=== PATIENT | female | born 1955 | race Caucasian/White ===

== ENCOUNTER → 2017-06-19 | Outpatient (CLI) | payer MEDICARE ==
--- NOTE | 2017-06-20 07:16 | US ---
EXAM DESCRIPTION: Thyroid CLINICAL HISTORY: 61 years Female, ENDOCRINE AND METABOLIC DISEASE COMPARISON: None. FINDINGS: The right thyroid lobe measures 4.4 cm in length. It contains a few small round hypoechoic nodules measuring up to 1.4 cm diameter, all without internal calcification. These may represent complex cystic or solid nodules. The thyroid isthmus is not thickened. The left thyroid lobe measures 5.6 cm in length. There is a solid isoechoic 7 mm nodule inferior pole left thyroid lobe without internal calcification. No color Doppler images of the thyroid were obtained. IMPRESSION: Bilateral subcentimeter thyroid nodules as detailed above. Follow-up ultrasound in 9-12 months is recommended to document stability. Otherwise unremarkable exam. Electronically signed by: J Luis Benjamin MD 06/20/2017 7:14 AM CDT Workstation: [id number]
--- NOTE | 2017-06-20 11:06 | MAM ---
EXAM DESCRIPTION: 3D Screening BILATERAL CLINICAL HISTORY: 61 yearsFemaleSCREENING. No complaints. No family history breast cancer. Postmenopausal. Currently on HRT. COMPARISON: 2-D digital screening bilateral examination 06/29/2016 and 04/22/2014.. Report from prior examination also reviewed. TECHNIQUE: Bilateral CC and MLO projection full-field images, 3-D tomosynthesis digital mammographic technique. Also bilateral synthesized CC/ MLO full-field images. CAD not utilized. FINDINGS: The breast parenchymal density pattern is: Scattered areas of fibroglandular density. No skin thickening or nipple retraction bilateral solitary microcalcifications. Focal asymmetry in the upper outer quadrant of the posterior third of the right breast is stable since 2014 examination. No focal, stellate mass or density, focal asymmetry , and no suspicious microcalcifications bilaterally. Stable mammograms compared to prior studies, taking into account differences in mammographic technique. IMPRESSION: BI-RADS CATEGORY: 2 - BENIGN FINDINGS. FOLLOW UP: Routine digital bilateral screening, one year interval from date Written communication explaining the findings and follow-up, will be mailed to the patient and referring health care provider. According to the [employer], yearly mammograms are recommended starting at age 40 and continuing as long as a woman is in good health. Any breast change noted on a breast self-exam should be reported promptly to the patient's healthcare provider. Breast MRI is recommended for women with an approximately 20-25% or greater lifetime risk of breast cancer, including women with a strong family history of breast or ovarian cancer and women who have been treated for Hodgkin's disease. A negative mammographic report should not delay tissue diagnosis in patients with significant clinical history or physical findings. Extremely dense breast tissue limits the sensitivity of digital mammography. Electronically signed by: Vivek Todd MD 06/20/2017 11:05 AM CDT Workstation: [id number]
== END | disposition home or self-care (01) ==
LOC: US 09:52
PROVIDERS: ATTEND Obstetrics & Gynecology
DX: Z12.31 Encounter for screening mammogram for malignant neoplasm of breast (principal); Z86.39 Personal history of other endocrine, nutritional and metabolic disease
CPT/HCPCS: 76536; 77063; G0202

== ENCOUNTER → 2017-08-16 | Outpatient (CLI) | payer MEDICARE | END | disposition home or self-care (01) | LOC: GMAB 12:38 | PROVIDERS: ATTEND Family Medicine | DX: I10 Essential (primary) hypertension (principal) ==

== ENCOUNTER → 2018-11-14 | Outpatient (CLI) | payer MEDICARE ==
--- NOTE | 2018-11-15 13:28 | MAM ---
EXAM DESCRIPTION: 3D Screening BILATERAL : Digital Mammography. CLINICAL HISTORY: 62 years Female SCREENING . No complaints. No personal or family history of breast cancer. No childbirth. Postmenopausal. Taking HRT 5 or more years ago.. Lifetime risk of developing breast cancer (Tyrer-Cuzick model)(%): 8.1. COMPARISON: prior. No prior reports available. TECHNIQUE: Bilateral CC and MLO projection full-field images, digital tomosynthesis mammographic technique. Bilateral digital 2-D full-field MLO images. CAD not available for tomosynthesis or 2-D images. FINDINGS: The breast parenchymal density pattern is: Scattered areas of fibroglandular density. No skin thickening or nipple retraction. Bilateral solitary microcalcifications. Smaller calcifications associated with fibroglandular tissues in the upper outer quadrant of the posterior right breast. No new focal, stellate mass or density, focal asymmetry , and no suspicious microcalcifications bilaterally. Stable mammograms compared to prior study. IMPRESSION: Benign exam. BIRAD CATEGORY: 2 BENIGN FINDINGS. RECOMMENDATIONS: FOLLOW UP: Routine digital bilateral mammographic screening, one year interval from October 2018. Written communication explaining the IMPRESSION and follow-up, will be mailed to the patient and referring health care provider. According to the [employer], yearly mammograms are recommended starting at age 40 and continuing as long as a woman is in good health. Any breast change noted on a breast self-exam should be reported promptly to the patient's healthcare provider. Breast MRI is recommended for women with an approximately 20-25% or greater lifetime risk of breast cancer, including women with a strong family history of breast or ovarian cancer and women who have been treated for Hodgkin's disease. A negative mammographic report should not delay tissue diagnosis in patients with significant clinical history or physical findings. Extremely dense breast tissue limits the sensitivity of digital mammography. Electronically signed by: Vivek Todd MD 11/15/2018 1:27 PM BOILERMAKER'S ASSISTANT
== END ==
LOC: MAMMO 10:38
PROVIDERS: ATTEND Obstetrics & Gynecology
DX: Z12.31 Encounter for screening mammogram for malignant neoplasm of breast (principal)

== ENCOUNTER → 2018-12-20 | Outpatient (CLI) | payer MEDICARE, OTHER ==
--- NOTE | 2018-12-21 07:48 | MRI ---
MRI right shoulder without contrast INDICATION: Shoulder pain limited range of motion date of onset not specified TECHNIQUE: MR imaging right shoulder without contrast standard protocol FINDINGS: Mild hypertrophic AC joint osteoarthrosis. Full-thickness retracted tears of the supraspinatus and infraspinatus retracted to the medial humeral head level. Background mild glenohumeral osteoarthrosis. Prominent joint fluid and diffuse bursitis with synovitis. Reactive marrow edema greater tuberosity. Up to grade 4 atrophy infraspinatus muscle belly. Grade 2 changes supraspinatus. Grade 1 changes teres minor and subscapularis. Prominent tendinopathy and partial tear subscapularis. Diffuse interstitial partial tear long head bicep with background tendinopathy. Diffuse labral degeneration. Cystic change lesser tuberosity related to the insertional subscapularis tear or bicep instability IMPRESSION: Full-thickness retracted tear supraspinatus and infraspinatus and partial tear with tendinosis subscapularis Diffuse partial tear long head bicep high-grade with cystic changes lesser tuberosity Prominent joint fluid and bursitis Mild AC joint osteoarthrosis Mild glenohumeral osteoarthrosis. Electronically signed by: Rohit Loredo MD 12/21/2018 7:45 AM ELECTRICIAN SOUND
== END ==
LOC: MRI 13:52
PROVIDERS: ATTEND Obstetrics & Gynecology
DX: M75.101 Unspecified rotator cuff tear or rupture of right shoulder, not specified as traumatic (principal); S46.119A Strain of muscle, fascia and tendon of long head of biceps, unspecified arm, initial encounter; M19.011 Primary osteoarthritis, right shoulder; M75.51 Bursitis of right shoulder; M19.90 Unspecified osteoarthritis, unspecified site

== ENCOUNTER → 2019-01-18 | Outpatient (CLI) | payer OTHER ==
--- NOTE | 2019-01-19 11:25 | CT ---
EXAM DESCRIPTION: Upper Extremity CLINICAL HISTORY: 63 years Female, LOCALIZED, PRIMARY OSTEOARTHRITIS, RIGHT SHOULDER. M19.011 COMPARISON: MRI of the right shoulder dated 12/20/2018. FINDINGS: The visualized bones appear well mineralized. No acute fracture or dislocation. Mild degenerative changes are identified in the acromioclavicular and glenohumeral joints. There is superior migration of the humeral head in relation to the glenoid, most likely secondary to rotator cuff tear is identified on MRI performed recently. CT is limited for evaluation of soft tissue structures. Please refer to the MRI report for detailed evaluation of the soft tissues. The visualized right chest appears normal. IMPRESSION: Mild degenerative changes are identified in the acromioclavicular and glenohumeral joints. There is superior migration of the humeral head in relation to the glenoid, most likely secondary to rotator cuff tear is identified on MRI performed recently. This exam was performed according to our departmental dose-optimization program, which includes automated exposure control, adjustment of the mA and/or kV according to patient size and/or use of iterative reconstruction technique. Electronically signed by: Teto Del Real MD 01/19/2019 11:22 AM CDT
== END ==
LOC: CT 09:40
PROVIDERS: ATTEND Orthopaedic Surgery
DX: M19.011 Primary osteoarthritis, right shoulder (principal)

== ENCOUNTER → 2019-01-31 | Outpatient (CLI) | payer OTHER | LOC: RESP 13:15 | PROVIDERS: ATTEND Orthopaedic Surgery | DX: Z01.818 Encounter for other preprocedural examination (principal) ==

== ENCOUNTER → 2019-02-13 | Outpatient (CLI) | payer OTHER | LOC: LAB.O 12:55 | PROVIDERS: ATTEND Obstetrics & Gynecology | DX: Z01.810 Encounter for preprocedural cardiovascular examination (principal); Z01.811 Encounter for preprocedural respiratory examination; Z01.818 Encounter for other preprocedural examination ==

== ENCOUNTER 2019-02-19 05:54 | Inpatient (IN) | payer OTHER ==
--- NOTE | 2019-02-14 13:25 | HP ---
CHIEF COMPLAINT: Right shoulder pain. HISTORY OF PRESENT ILLNESS: Elena is a 63-year-old female with a history of pain in the right shoulder that is secondary to a massive rotator cuff tear and arthritis. She has had conservative measures, however, has failed to gain relief. Because of the presence of her cuff tear with associated arthritis, we talked about options at this point. The pain has been disabling for her and because of the ongoing symptoms, she has requested operative intervention. After discussing the risks, benefits and alternatives to operative intervention, she has given informed consent for reverse total shoulder arthroplasty. PAST SURGICAL HISTORY: 1. Cholecystectomy. 2. Vein stripping. MEDICATIONS: 1. Duloxetine. 2. Omeprazole. 3. Estropipate. 4. Gabapentin. 5. Oxybutynin. 6. Alprazolam. 7. Metoprolol. 8. Estazolam. 9. Cyclobenzaprine. 10. Simvastatin. 11. Methotrexate. 12. Prednisone. 13. Folate. 14. Hydrocodone. ALLERGIES: NO KNOWN DRUG ALLERGIES. CODE STATUS: DNR. IMMUNIZATIONS: Up to date. FAMILY HISTORY: None pertinent to today's complaint. SOCIAL HISTORY: The patient does not use any illicit drugs. She does smoke and uses alcohol. REVIEW OF SYSTEMS: Negative except as indicated in the History of Present Illness. PHYSICAL EXAMINATION: VITAL SIGNS: Blood pressure 148/88. Pulse 68. Height 5'. Weight 172 pounds. MENTAL STATUS: The patient is awake, alert, and is able to give a good history and participate in the physical. The patient is oriented to person, place and time. SKIN: Normal tone and turgor. HEENT: Normocephalic, atraumatic. Pupils equal, round and reactive. Mucosal membranes are moist. NECK: Normal range of motion. No thyromegaly, no lymphadenopathy. CHEST: Normal respiratory excursion. CARDIAC: Regular rate and rhythm. No murmurs, rubs or gallops. MUSCULOSKELETAL: The bilateral lower extremities show full painless range of motion. She has intact sensation. She has no deformity and no crepitus in the knees or hips. Strength is 5/5 throughout. The left upper extremity shows full range of motion in elbow, wrist and digits. She does have some pain with range of motion of the shoulder, but she is able to fully abduct and forward flex. Sensation is intact throughout. It is warm and well perfused. The right upper extremity shows abduction to about 70 degrees. She has intact sensation. She has full computer numerical control programmer strength. She has forward flexion to about 80 degrees. She has internal rotation to the plane of the body. She does have crepitus throughout her range of motion. IMAGING: X-rays, MRI and CT scan show advanced arthritis. MRI does show a full thickness retracted tear of the rotator cuff. ASSESSMENT: 1. Rotator cuff tear. 2. Rheumatoid arthritis. PLAN: The plan at this point is for total shoulder arthroplasty. We have discussed the risks, benefits, and alternatives to that and the patient has given informed consent. [id number]
[~2019-02-19 05:54] MED LIST: LACTATED RINGERS 1,000 ML ONE; SODIUM CHL 0.9% 100ML MINI-BAG 100 ML IVPB ONE; SODIUM CHLORIDE 0.9% 250ML 250 ML ONE; VANCOMYCIN HCL INJ 1,000 MG VIAL IVPB ONE; ceFAZolin SODIUM 1 GM VIAL ONE
[2019-02-19] MEDS ORDERED: CLINDAMYCIN IV 900MG 50 ML IVPB ONE (06:40)
[2019-02-19] MEDS ORDERED: VANCOMYCIN HCL INJ 1,000 MG VIAL IVPB ONE ×3 (06:40→19:18)
[2019-02-19] MEDS ORDERED: BUPIVACAINE 0.5% 30 ML VIAL INJ ONE (06:40)
[2019-02-19] MEDS ORDERED: BUPIVACAINE LIPOSOME 13.3 MG/ML VIAL INJ ONE (06:40)
[2019-02-19] MEDS ORDERED: MIDAZOLAM INJ 5 MG/5 ML VIAL ONE (06:41)
[2019-02-19] MEDS ORDERED: ACETAMINOPHEN IV 1000MG 100 ML ONE (06:41)
[2019-02-19] MEDS ORDERED: ROCURONIUM BROMIDE 10 MG/ML VIAL ONE (06:42)
[2019-02-19] MEDS ORDERED: fentaNYL CITRATE INJ 50 MCG/ML AMP ONE (06:42)
[2019-02-19] MEDS ORDERED: ceFAZolin SODIUM 1 GM VIAL ONE (06:46)
[2019-02-19] MEDS: ceFAZolin SODIUM 1 GM VIAL ONE ×2 (08:13→10:35)
[2019-02-19] MEDS: VANCOMYCIN HCL INJ 1,000 MG VIAL IVPB ONE ×2 (08:14→10:35)
[2019-02-19] MEDS ORDERED: KETAMINE HCL 100 MG/ML VIAL ONE (08:16)
[2019-02-19] MEDS ORDERED: ELECTROLYTE-A 1,000 ML IVS ONE (09:45)
[2019-02-19] MEDS ORDERED: BUPIVACAINE 0.25% INJ 30 ML VIAL INJ ONE (10:18)
[2019-02-19] MEDS ORDERED: TRANEXAMIC ACID INJ 1,000 MG in SODIUM CHLORIDE 0.9% 100ML 100 ML IVPB ONE (10:33)
[2019-02-19] MEDS ORDERED: ONDANSETRON INJ 4 MG/2 ML VIAL IV PRN (10:33)
[2019-02-19] MEDS ORDERED: SODIUM CHLORIDE 0.9% (FLUSH) 10 ML SYG IV PRN (10:33)
[2019-02-19] MEDS ORDERED: MORPHINE SULFATE INJ 10 MG/ML VIAL IV PRN (10:33)
[2019-02-19] MEDS ORDERED: BENZOCAINE-MENTH LOZ (CEPACOL) 1 EA LOZ MT PRN (10:33)
[2019-02-19] MEDS ORDERED: PROMETHAZINE HCL INJ 12.5 MG in SODIUM CHLORIDE 0.9% 50ML 50 ML IVPB PRN (10:33)
[2019-02-19] MEDS ORDERED: CYCLOBENZAPRINE HCL 10 MG TAB PO PRN (10:33)
[2019-02-19] MEDS ORDERED: ZOLPIDEM TARTRATE 5 MG TAB PO PRN (10:33)
[2019-02-19] MEDS ORDERED: MAGNESIUM HYDROXIDE 30 ML UD PO PRN (10:33)
[2019-02-19] MEDS ORDERED: HYDROcodone 5MG/APAP 325MG 1 EA TAB PO PRN (10:33)
[2019-02-19] MEDS ORDERED: ACETAMINOPHEN 500 MG TAB PO PRN (10:33)
[2019-02-19] MEDS ORDERED: traMADol HCL 50 MG TAB PO PRN (10:33)
[2019-02-19] MEDS ORDERED: MORPHINE SULFATE INJ 10 MG/ML VIAL IM PRN (10:33)
[2019-02-19] MEDS ORDERED: ALUMINUM & MAGNESIUM HYDROXIDE 30 ML UD PO PRN (10:33)
[2019-02-19] MEDS ORDERED: NALOXONE HCL INJ 0.4 MG/ML VIAL IV PRN (10:33)
[2019-02-19] MEDS ORDERED: DEX 5% W/NACL 0.45% 1000ML 1,000 ML IVS PRN (10:33)
[2019-02-19] MEDS ORDERED: ACETAMINOPHEN 325 MG TAB PO PRN (10:33)
[2019-02-19] MEDS ORDERED: TEMAZEPAM 15 MG CAP PO PRN (10:33)
[2019-02-19] MEDS ORDERED: PROMETHAZINE HCL INJ 25 MG in SODIUM CHLORIDE 0.9% 50ML 50 ML IVPB PRN (10:33)
[2019-02-19] MEDS ORDERED: BISACODYL SUPPOSITORY 10 MG PR PRN (10:33)
[2019-02-19] MEDS ORDERED: SUGAMMADEX SODIUM 200 MG/2 ML VIAL IV ONE (10:40)
[2019-02-19] MEDS ORDERED: IV SET AND CAP CHANGE INJ INJ SCH (11:00)
[2019-02-19] MEDS ORDERED: MORPHINE PCA 1 MG/ML 100 ML BAG IVPB SCH (11:00)
[2019-02-19] MEDS ORDERED: SODIUM CHLORIDE 0.9% 100ML 100 ML IVPB ONE (11:18)
[2019-02-19] MEDS ORDERED: TRANEXAMIC ACID 1,000 MG/10 ML VIAL ONE (11:18)
[2019-02-19] MEDS ORDERED: MORPHINE PCA 1 MG/ML 100 ML BAG IVPB ONE (11:28)
[2019-02-19] MEDS ORDERED: SODIUM CHLORIDE 0.9% 50ML 50 ML ONE ×2 (14:58→19:18)
[2019-02-19] MEDS ORDERED: CLINDAMYCIN PHOSPHATE 150 MG/ML VIAL ONE ×2 (14:58→19:17)
[2019-02-19] MEDS: CLINDAMYCIN INJ (VIAL) 300 MG in SODIUM CHLORIDE 0.9% 50ML 50 ML IVPB SCH ×2 (15:11→22:06)
[2019-02-19] MEDS: CELECOXIB 100 MG CAP PO SCH (17:24)
[2019-02-19] MEDS: NICOTINE PATCH 14 MG TD SCH (17:24)
[2019-02-19] MEDS ORDERED: SODIUM CHLORIDE 0.9% 250ML 250 ML ONE ×2 (18:15→19:17)
[2019-02-19] MEDS: VANCOMYCIN HCL INJ 1,000 MG in SODIUM CHLORIDE 0.9% 250ML 250 ML IVPB SCH (18:25)
[2019-02-19] MEDS ORDERED: SIMVASTATIN 20 MG TAB ONE (19:18)
[2019-02-19] MEDS ORDERED: ENOXAPARIN SODIUM 30 MG/0.3 ML SYG SUBCU ONE (19:18)
--- NOTE | 2019-02-19 19:56 | CONS ---
DATE OF CONSULTATION: 02/19/19 SUPERVISING PHYSICIAN: Alphonso Schuster M.D. REASON FOR CONSULTATION: Reverse total shoulder arthroplasty. HISTORY OF PRESENT ILLNESS: Ms. Sanches is a 63 year-old female patient that was admitted today for elective right total shoulder arthroplasty. She has a history of massive rotator cuff tears and arthritis. She had attempted multiple times to treat it conservatively as an outpatient but gained no significant relief. Due to the degree of cuff tear and associated arthritis, after discussing with Dr. Braxton, she elected to have a reverse total shoulder arthroplasty. She had no intraoperative complications. She was seen in the immediate postoperative state in stable condition. She is alert. PAST MEDICAL HISTORY: 1. Lupus. 2. Fibromyalgia. 3. Rheumatoid arthritis. 4. Osteoarthritis. PAST SURGICAL HISTORY: 1. Cholecystectomy. 2. Varicose vein stripping. CURRENT MEDICATIONS: 1. Prednisone 20 mg daily. 2. Cyclobenzaprine 10 mg daily. 3. Ditropan 5 mg daily. 4. Toprol XL 25 mg at bedtime. 5. Xanax 0.25 mg at bedtime. 6. Omeprazole 20 mg daily. 7. Folic acid 1 mg t.i.d. 8. Ultracet 1 tablet every 4 hours as needed for pain. 9. Estropipate 0.75 mg daily. 10. Estazolam 2 mg at bedtime. 11. Cymbalta 30 mg at bedtime. 12. Gabapentin 300 mg t.i.d. 13. Fluoxetine 40 mg daily. 14. Zolpidem 10 mg at h.s. 15. Simvastatin 40 mg b.i.d. 16. Leucovor calcium 100 mg injected weekly. 17. Methotrexate 50 mg weekly. 18. Lorcet 10 one t.i.d. as needed. ALLERGIES: IODINE AND ADHESIVE TAPES. FAMILY HISTORY: Unknown as she is adopted. SOCIAL HISTORY: The patient is retired from [employer]. She is a current smoker approximately a pack a day. She drinks 3 to 7 beers occasionally throughout the week. She lives in [place]. She is . She does not use illicit drugs. REVIEW OF SYSTEMS: CONSTITUTIONAL: Negative for any fevers, chills, general malaise. HEENT: Negative for any ear aches, sore throat, nasal congestion, headaches, vision changes. RESPIRATORY: Negative for any shortness of breath, coughing, wheezing. CARDIOVASCULAR: Negative for any palpitations, syncopal episodes, chest pains. GASTROINTESTINAL: Negative for any nausea, vomiting, diarrhea, constipation or abdominal pains. GENITOURINARY: Denies any dysuria, hematuria or polyuria. MUSCULOSKELETAL: As noted in history of present illness. NEUROLOGIC: Negative for any seizures, ataxia or vision changes, syncopal episodes or other neurological deficits. PHYSICAL EXAMINATION: VITAL SIGNS: temperature 97.6, pulse 80, blood pressure 125/77, respirations 20, satting 97% on nasal cannula at 2 liters at rest. Admission weight 79.3 kg. GENERAL: The patient is resting comfortably. Right arm is in a sling, bandage over the right shoulder. She appears to be in no acute distress. She is alert. CHEST: Lung sounds were clear to auscultation bilaterally without any rhonchi, wheezing or rales. HEART: Regular rate and rhythm without appreciable murmurs, gallops, or rubs. ABDOMEN: Soft, non-tender. Positive bowel sounds. EXTREMITIES: Without any clubbing, cyanosis or edema. Right shoulder has a bulky dressing in place which is clean and dry. Right arm is in a sling with radial pulses strong bilaterally. Capillary refill is brisk. NEUROLOGIC: She is alert and oriented times three. LABORATORY: Preoperative drug screen shows positive for Benzodiazepines. Other postoperative labs pending. RADIOLOGY: No additional radiographic studies. ASSESSMENT: 1. Severe right shoulder pain with history of osteoarthritis and rotator cuff repair requiring surgical intervention to include a reverse total right shoulder arthroplasty for symptom control with surgery performed by Dr. Vance Braxton. 2. Lupus. 3. Fibromyalgia. 4. Rheumatoid arthritis. 5. Osteoarthritis. 6. Nicotine addiction. PLAN: The patient will be followed in her postoperative phase. Will resume her home medications once those have been updated and verified. Will closely follow her vital signs and treat as needed. She will be on DVT prophylaxis per protocol. Given that she is a smoker, I did discuss smoking cessation but will go ahead and utilize a nicotine patch in the interim until discharge. She is encouraged to do deep breathing exercises and will work with physical therapy. Anticipation of discharging either today or . Until then, will continue to monitor and treat as needed. Once discharged she plans on doing physical [facility] with [facility]. [facility][id number] [facility]
[2019-02-19] MEDS ORDERED: DULoxetine HCL 30 MG CAP PO SCH (21:00)
[2019-02-19] MEDS: METOPROLOL SUCCINATE XL 25 MG TAB PO SCH (21:36)
[2019-02-19] MEDS: DOCUSATE CALCIUM 240 MG CAP PO SCH (21:36)
[2019-02-19] MEDS: NON-FORMULARY MEDICATION 1 EA MIS (Simvastatin [Simvastatin] 40 MG) PO SCH (21:37)
[2019-02-19] MEDS: FOLIC ACID 1 MG TAB PO SCH (21:37)
[2019-02-19] MEDS: GABAPENTIN 300 MG CAP PO SCH (21:38)
[2019-02-19] MEDS: ENOXAPARIN SODIUM 30 MG/0.3 ML SYG SUBCU SCH (22:03)
[2019-02-20] MEDS ORDERED: CLINDAMYCIN PHOSPHATE 150 MG/ML VIAL ONE ×4 (03:20→19:19)
[2019-02-20] MEDS ORDERED: SODIUM CHLORIDE 0.9% 50ML 50 ML ONE ×4 (03:20→19:19)
[2019-02-20] MEDS: VANCOMYCIN HCL INJ 1,000 MG in SODIUM CHLORIDE 0.9% 250ML 250 ML IVPB SCH (05:58)
[2019-02-20] MEDS: CLINDAMYCIN INJ (VIAL) 300 MG in SODIUM CHLORIDE 0.9% 50ML 50 ML IVPB SCH ×3 (06:01→22:22)
[2019-02-20] MEDS: CELECOXIB 100 MG CAP PO SCH ×2 (07:25→17:08)
--- NOTE | 2019-02-20 08:26 | RAD ---
EXAM DESCRIPTION: Shoulder,Right 2 or More Views CLINICAL HISTORY: s/p right shoulder total arthroplasty. COMPARISON: CT of the shoulder dated 18 January 2019 TECHNIQUE: AP right FINDINGS: A reverse right total shoulder arthroplasty is observed in place. Positioning is near-anatomic. Postoperative air is observed in the region of the joint. IMPRESSION: Right reverse total shoulder arthroplasty. Electronically signed by: Alex Brooks MD 02/20/2019 8:22 AM CDT
[2019-02-20] MEDS ORDERED: predniSONE 5 MG TAB PO SCH (09:00)
[2019-02-20] MEDS ORDERED: sulfaSALAzine TAB 500 MG TAB PO SCH (09:00)
[2019-02-20] MEDS ORDERED: NON-FORMULARY MEDICATION 1 EA MIS PO SCH ×2 (09:00→21:00)
[2019-02-20] MEDS ORDERED: FLUoxetine HCL 20 MG CAP PO SCH (09:00)
[2019-02-20] MEDS ORDERED: ESTROPIPATE 0.75 MG PO SCH (09:00)
[2019-02-20] MEDS ORDERED: predniSONE 1 MG TAB PO SCH (09:00)
[2019-02-20] MEDS ORDERED: OXYBUTYNIN CL 5 MG TAB PO SCH ×2 (09:00)
[2019-02-20] MEDS: NICOTINE PATCH 14 MG TD SCH (09:53)
[2019-02-20] MEDS ORDERED: ONDANSETRON INJ 4 MG/2 ML VIAL IV ONE (10:00)
[2019-02-20] MEDS ORDERED: PROPOFOL 200 MG/20 ML VIAL IV ONE (10:00)
[2019-02-20] MEDS ORDERED: ceFAZolin SODIUM 1 GM VIAL IVPB ONE (10:00)
[2019-02-20] MEDS ORDERED: SODIUM CHLORIDE 0.9% 50 ML VIAL INJ ONE (10:00)
[2019-02-20] MEDS ORDERED: LIDOCAINE 1% 10 ML VIAL INJ ONE (10:00)
[2019-02-20] MEDS ORDERED: PHENYLEPHRINE INJ 1ML 10 MG/ML VIAL IV ONE (10:00)
[2019-02-20] MEDS ORDERED: DEXAMETHASONE INJ 10 MG/ML VIAL IV ONE (10:00)
[2019-02-20] MEDS ORDERED: diphenhydrAMINE HCL 50 MG/ML VIAL IV ONE (10:00)
[2019-02-20] MEDS ORDERED: KETOROLAC TROMETHAMINE INJ 30 MG/ML VIAL IV ONE (10:00)
[2019-02-20] MEDS ORDERED: ePHEDrine SULF 50 MG/ML IV ONE (10:00)
[2019-02-20] MEDS: REMOVE OLD PATCH TOP SCH (10:51)
[2019-02-20] MEDS: GABAPENTIN 300 MG CAP PO SCH ×3 (10:52→20:31)
[2019-02-20] MEDS: ESTRADIOL TAB 1 MG PO SCH (10:52)
[2019-02-20] MEDS: FOLIC ACID 1 MG TAB PO SCH ×2 (10:53→12:50)
[2019-02-20] MEDS: OMEPRAZOLE CAP 20 MG CAP PO SCH (10:53)
[2019-02-20] MEDS: medroxyPROGESTERone ACETATE 5 MG TAB PO SCH (10:53)
[2019-02-20] MEDS: MAGNESIUM OXIDE 400 MG TAB PO SCH (10:53)
[2019-02-20] MEDS: CYCLOBENZAPRINE HCL 10 MG TAB PO SCH ×3 (11:03→20:33)
[2019-02-20] MEDS: ENOXAPARIN SODIUM 30 MG/0.3 ML SYG SUBCU SCH ×2 (11:13→22:19)
[2019-02-20] MEDS: FLUOXETINE HCL 80 MG PO SCH ×2 (11:32→13:15)
--- NOTE | 2019-02-20 11:59 | PN ---
DATE: 02/20/19 SUBJECTIVE: She is doing really well. She says she has no pain. She has been up utilizing the arm. OBJECTIVE: Afebrile. Vital signs stable. Dressing is clean, dry and intact. She has had return of sensation. She has 5/5 paving and surfacing labourer strength. ASSESSMENT: Status post total shoulder arthroplasty. PLAN: The plan at this point is for her to continue with her physical therapy. We will discharge her probably tomorrow. #[id number] [facility]
[2019-02-20] MEDS ORDERED: POLYETHYLENE GLYCOL 3350 17 GM PCKT PO ONE (12:05)
[2019-02-20] MEDS: NON-FORMULARY MEDICATION 1 EA MIS (Simvastatin [Simvastatin] 40 MG) PO SCH (12:53)
[2019-02-20] MEDS ORDERED: predniSONE 1 MG TAB ONE (12:58)
--- NOTE | 2019-02-20 15:36 | PN ---
DATE: 02/20/19 SUPERVISING PHYSICIAN: Alphonso Schuster M.D. SUBJECTIVE: The patient is doing well. She is up ambulating, just finished physical therapy. She has good pain control but she still continues to be on a SURGICAL APPLIANCES SALESPERSON pump. She has had no further complaints. She has had a nicotine patch. She has had no shortness of breath, nausea or vomiting. OBJECTIVE: VITAL SIGNS: Temperature .3, pulse 73, blood pressure 130/70, respirations 18, satting 98% on room air. CHEST: Lungs are clear to auscultation. HEART: Regular rate and rhythm. EXTREMITIES: Right shoulder has a bandage in place that is clean and dry. Distally pulses are strong, capillary refill is brisk. No reported paresthesias. She moves all extremities ad sergio. Good equal bilateral corn breeder upper extremities. NEUROLOGIC: She is alert and oriented times three. LABORATORY: Postoperative H&H 11.6 and 34.8 respectively. ASSESSMENT: 1. Severe right shoulder pain with history of osteoarthritis and rotator cuff repair requiring surgical intervention to include a reverse total right shoulder arthroplasty for symptom control with surgery performed by Dr. Vance Braxton. Postoperative day 1. 2. Lupus. 3. Fibromyalgia. 4. Rheumatoid arthritis. 5. Osteoarthritis. 6. Nicotine addiction. PLAN: Will continue to follow the patient as she progresses through her physical therapy and rehabilitation efforts. At this point the plan would be to discharge tomorrow to continue with outpatient management through the [facility]. Will continue to monitor closely as needed until she can transition to outpatient management. #[id number] [facility]
[2019-02-20] MEDS ORDERED: MAGNESIUM HYDROXIDE 30 ML UD PO ONE (18:00)
[2019-02-20] MEDS: METOPROLOL SUCCINATE XL 25 MG TAB PO SCH (20:32)
[2019-02-20] MEDS: SODIUM CHLORIDE 0.9% (FLUSH) 10 ML SYG IV SCH (20:33)
[2019-02-20] MEDS: DOCUSATE CALCIUM 240 MG CAP PO SCH (20:33)
[2019-02-20] MEDS ORDERED: ESTAZOLAM 1 MG PO SCH (21:00)
[2019-02-20] MEDS ORDERED: SIMVASTATIN 20 MG TAB PO SCH (21:00)
[2019-02-20] MEDS ORDERED: ARIPIPRAZOLE 2 MG PO SCH (21:00)
[2019-02-20] MEDS ORDERED: BENZONATATE PERLES 100 MG CAP PO SCH (21:00)
[2019-02-20] MEDS ORDERED: ALPRAZolam 0.25 MG TAB PO SCH (21:00)
[2019-02-21] MEDS: CLINDAMYCIN INJ (VIAL) 300 MG in SODIUM CHLORIDE 0.9% 50ML 50 ML IVPB SCH (06:13)
[2019-02-21 06:19] VITALS: BP 143/84; TEMP 98.3; O2SAT 100
[2019-02-21] MEDS: CELECOXIB 100 MG CAP PO SCH (07:42)
[2019-02-21] MEDS: CYCLOBENZAPRINE HCL 10 MG TAB PO SCH (08:04)
[2019-02-21] MEDS: FOLIC ACID 1 MG TAB PO SCH (08:04)
[2019-02-21] MEDS: MAGNESIUM OXIDE 400 MG TAB PO SCH (08:04)
[2019-02-21] MEDS: medroxyPROGESTERone ACETATE 5 MG TAB PO SCH (08:04)
[2019-02-21] MEDS: ESTRADIOL TAB 1 MG PO SCH (08:05)
[2019-02-21] MEDS: SODIUM CHLORIDE 0.9% (FLUSH) 10 ML SYG IV SCH (08:05)
[2019-02-21] MEDS: OMEPRAZOLE CAP 20 MG CAP PO SCH (08:05)
[2019-02-21] MEDS: GABAPENTIN 300 MG CAP PO SCH (08:05)
[2019-02-21] MEDS: FLUOXETINE HCL 80 MG PO SCH (08:07)
[2019-02-21] MEDS: NICOTINE PATCH 14 MG TD SCH (08:07)
[2019-02-21] MEDS: REMOVE OLD PATCH TOP SCH (08:13)
--- NOTE | 2019-02-21 08:19 | PN ---
DATE: 02/21/19 SUBJECTIVE: She is doing really well. She is sitting up and using the arm. OBJECTIVE: Afebrile. Vital signs stable. Wound is clean. There are no signs or symptoms of infection. ASSESSMENT: Status post total shoulder arthroplasty. PLAN: The plan at this point is for her discharge today. She has been given appropriate instructions on wound care and we will see her back again in 2 weeks. She has been instructed to return immediately should any change in her condition occur. [facility][id number] [facility]
[2019-02-21] MEDS ORDERED: predniSONE 1 MG TAB PO SCH (09:00)
--- NOTE | 2019-02-21 11:06 | DS ---
SUPERVISING PHYSICIAN: Alphonso Schuster MD DISCHARGE DIAGNOSIS: 1. Severe right shoulder pain with history of osteoarthritis and rotator cuff repair requiring surgical intervention to include a reverse total right shoulder arthroplasty for symptom control with surgery performed by Dr. Vance Braxton, orthopedic surgeon. Postoperative day 2. 2. Lupus. 3. Fibromyalgia. 4. Rheumatoid arthritis. 5. Osteoarthritis. 6. Nicotine addiction. HISTORY OF PRESENT ILLNESS: This is a 63-year-old female patient who was admitted for elective right total shoulder arthroplasty. She has a history of massive rotator cuff tears and arthritis. She had attempted multiple times to treat it conservatively as an outpatient, but gained no significant relief. Due to the degree of cuff tear and associated arthritis, she elected to have a reverse total shoulder arthroplasty per Dr. Vance Braxton, orthopedic surgeon. She had no intraoperative complications. She was seen in the immediate postoperative state on the Medical/Surgical Floor. HOSPITAL COURSE: The patient did her physical therapy for strengthening and conditioning over the next 2 days. Her home medications were restarted. She had good pain control on her GRAPHIC DESIGN INTERN pump and was transitioned to oral pain medications. At this point, she will be discharged home in stable condition. LABORATORY: On postoperative day 1, hemoglobin was 11 and hematocrit 34.8. DISCHARGE PLAN: The patient will be discharged home in stable condition. She is to resume her previous diet as well as her previous medications. She will continue her physical therapy as an outpatient at [facility]. She is to followup with Dr. Braxton on 03/07/19 at 10 AM. She has been sent home with some pain medications. She is to return to the hospital or followup with Dr. Braxton's office for any problems or complications. DISCHARGE MEDICATIONS: 1. Cyclobenzaprine. 2. Methotrexate. 3. Metoprolol. 4. Simvastatin. 5. Leucovor. 6. Xanax. 7. Gabapentin. 8. Omeprazole. 9. Fluoxetine. 10. Folic acid. 11. Prednisone 12. Estrace 13. Aripiprazole. 14. Provera. 15. Oxybutynin. 16. Tessalon Perles. 17. Estazolam. 18. Hydrocodone. [facility][id number] [facility]
[2019-02-21] MEDS ORDERED: POLYETHYLENE GLYCOL 3350 17 GM PCKT PO SCH (18:00)
--- NOTE | 2019-02-27 10:45 | OP ---
DATE OF PROCEDURE: 02/19/19 PREOPERATIVE DIAGNOSIS: 1. Right shoulder arthritis. 2. Right rotator cuff tear. POSTOPERATIVE DIAGNOSIS: 1. Right shoulder arthritis. 2. Right rotator cuff tear. PROCEDURE: 1. Reverse shoulder arthroplasty. SURGEON: Vance Braxton MD. COAGULATING DRYING SUPERVISOR: Vivek Sapp CST, SA-C. ANESTHESIA: General anesthesia. COMPLICATIONS: None. FINDINGS: 1. Severe arthritis. 2. Rotator cuff tear. INDICATION: Ms. Sanches has a history of shoulder pain that has been associated with ongoing arthritis. During evaluation, she also was noted to have a very large rotator cuff tear with retraction to the level of the glenohumeral joint. Because of these findings, we discussed options. After discussing the risks, benefits and alternatives to operative therapy, informed consent was obtained. PROCEDURE: The patient was brought to the Operating Room and placed in the supine position. General anesthesia was induced. The patient's arm and shoulder were sterilely prepped and draped. An incision was made and standard deltopectoral approach was used. The subscapularis was identified and the axillary nerve was located. The subscapularis was elevated off the humerus and the glenohumeral joint was exposed. The arm was externally rotated and the humerus was dislocated from the glenohumeral joint. The primary humeral neck cut was made in 30 degrees of retroversion. Sequential reaming was used to achieve size 10 CrossFit prosthesis. The trial stem was left in place and the arm was reduced. The glenoid was exposed and the glenoid labrum was removed. A guidewire was placed in the inferior portion angled slightly cephalad. The glenoid was then reamed to a bleeding bony bed of cancellous bone. A central screw was placed into the baseplate followed by 4 peripheral screws. Glenosphere was impacted into place. The humeral canal was exposed and a trial polyethylene was placed. The shoulder was reduced and taken through a range of motion. There was no impingement, no pending dislocation and the shoulder was subsequently dislocated. Final humeral component was impacted into place and the shoulder was again reduced with the real polyethylene in place. The shoulder was taken through a range of motion and there was no impingement or pending dislocation. The wound was very thoroughly irrigated and closed with a reapproximation of the deltopectoral interval. Sterile dressings were applied. The patient was placed in a sling, awoken from anesthesia and taken to Recovery. POSTOPERATIVE PLAN: She will begin range of motion immediately. We will start doing strengthening after she becomes more comfortable. She will be two days in the hospital. #[id number] [facility]
== END 2019-02-21 09:56 | disposition home or self-care (01) | DRG 483 ==
LOC: AMB 05:54 → MS 12:18
PROVIDERS: ADMIT Orthopaedic Surgery; ATTEND Nurse Practitioner Acute Care
PROC: 0RRJ00Z Replacement of Right Shoulder Joint with Reverse Ball and Socket Synthetic Substitute, Open Approach (ICD-10-PCS; principal; 2019-02-19 07:19)
DX: M19.011 Primary osteoarthritis, right shoulder (principal); M75.121 Complete rotator cuff tear or rupture of right shoulder, not specified as traumatic; I10 Essential (primary) hypertension; K21.9 Gastro-esophageal reflux disease without esophagitis; M06.9 Rheumatoid arthritis, unspecified; M32.9 Systemic lupus erythematosus, unspecified; M79.7 Fibromyalgia; E66.9 Obesity, unspecified; F17.210 Nicotine dependence, cigarettes, uncomplicated; Z79.52 Long term (current) use of systemic steroids; Z79.1 Long term (current) use of non-steroidal anti-inflammatories (NSAID); Z91.048 Other nonmedicinal substance allergy status; Z66 Do not resuscitate; Z79.899 Other long term (current) drug therapy; Z68.33 Body mass index [BMI] 33.0-33.9, adult

== ENCOUNTER 2019-03-04 05:27 | Day surgery (SDC) | payer OTHER ==
[2019-03-04] MEDS ORDERED: TROP 1%/CYCLOPEN 1%/PHENYL 2% DROPS ONE (06:04)
[2019-03-04] MEDS ORDERED: MOXIFLOXACIN HCL (OPHTH) 1 DROP DROPS ONE (06:04)
[2019-03-04] MEDS ORDERED: PROPARACAINE 0.5% OPHTH SOL 15 ML BTTL ONE (06:04)
[2019-03-04] MEDS ORDERED: MIDAZOLAM INJ 2 MG/2 ML VIAL ONE (07:10)
[2019-03-04] MEDS ORDERED: LIDOCAINE 1% 2 ML VIAL INJ ONE (07:36)
[2019-03-04] MEDS ORDERED: PROPARACAINE 0.5% OPHTH SOL 15 ML BTTL LEFT_EYE ONE (07:36)
[2019-03-04] MEDS ORDERED: MOXIFLOXACIN HCL (OPHTH) 1 DROP DROPS LEFT_EYE ONE (07:45)
[2019-03-04] MEDS ORDERED: BRIMONIDINE 0.2% OPHTH DROPS LEFT_EYE ONE (07:47)
[2019-03-04] MEDS ORDERED: TOBRAMYCIN SULF 0.3 % OPHT SOL 1 DROP LEFT_EYE ONE (07:47)
[2019-03-04] MEDS ORDERED: DEXAMETHASONE 0.1% OPHTH SOL 1 DROP LEFT_EYE ONE (07:47)
== END 2019-03-04 08:25 | disposition home or self-care (01) ==
LOC: AMB 05:27
PROVIDERS: ATTEND Ophthalmology
DX: H25.12 Age-related nuclear cataract, left eye (principal); Z79.899 Other long term (current) drug therapy
CPT/HCPCS: 00142; 66984; J2250

== ENCOUNTER → 2019-04-04 | Outpatient (CLI) | payer OTHER ==
--- NOTE | 2019-04-05 09:59 | CT ---
Procedure: CT LUNG SCREENING Exam Date: 04/04/2019. Ordering Provider: Tony Fernandez Clinical Indication: PERSONAL HX OF TOBACCO USE. Cigarette smoker. 43 pack years. This patient meets eligibility criteria for low-dose CT lung cancer screening. Comparison: CT chest and thorax with IV contrast 09/05/2014. Technique: Using a multislice scanner, sequential helical axial imaging was obtained in the thorax, 2.5 mm thickness, 2.5 mm separation, from the level of the thoracic inlet through the lung bases without IV contrast. A low dose protocol was utilized for BMI greater than 30: BMI: 34.4. CTDI: 2.93 mGy. 120. kVp. 45 mA. DLP 96.52 mGy-centimeters. 2D sagittal and coronal reconstructed images, 6.0 mm thickness, were obtained. This exam was performed according to our departmental dose optimization program which includes use of automated exposure control, adjustment of the mA and/or kV according to patient size and/or use of iterative reconstruction technique. Nodule measurements under 10 mm are given as mean value of 3 axes diameters. FINDINGS: Lungs and large airways: No abnormal nodules or masses. No focal infiltrates. Early small scattered blebs. Pleural-parenchymal scarring in the inferior lingula and in the lateral left lower lobe. Pleura and space: No effusion or pneumothorax. Mediastinum and santo: evaluation limited by low dose technique and lack of IV contrast. No enlarged lymph nodes or soft tissue masses. Heart and great vessels: Coronary artery calcifications. Atherosclerotic calcifications in some of the brachiocephalic vessels and the aortic arch. Chest wall, lower neck, axillae: Evaluation also limited by same factors as described above. Negative. Upper abdomen: Included peritoneal space with no fluid, stranding, or free air. Included adrenal glands and spleen are negative. Prior cholecystectomy. Osseous structures: Evaluation limited by low dose MIP technique. Reverse total right shoulder arthroplasty. Minimal thoracic spondylosis and dextroscoliosis. Although partially healing rib fractures on the left. IMPRESSION: Minimal emphysematous changes. No abnormal nodules or masses. No focal infiltrates.. [facility] recommendations: Please see below for Lung RADS category and FOLLOW-UP.* *Lung RADS category Category 1 - No nodule or definitely benign nodules (probability of malignancy less than 1%). Follow-up: Continue annual screening with Low Dose Chest CT in 12 months. Electronically signed by: Vivek Todd MD 04/05/2019 9:56 AM CDT
== END ==
LOC: CT 11:00
PROVIDERS: ATTEND Family Medicine
DX: Z87.891 Personal history of nicotine dependence (principal); J43.9 Emphysema, unspecified

== ENCOUNTER → 2019-04-16 | Outpatient (CLI) | payer OTHER | LOC: LAB.O 14:54 | PROVIDERS: ATTEND Family Medicine | DX: R53.83 Other fatigue (principal) ==

== ENCOUNTER → 2019-05-29 | Outpatient (CLI) | payer OTHER ==
--- NOTE | 2019-05-30 13:30 | CT ---
EXAM DESCRIPTION: Upper Extremity CLINICAL HISTORY: PRIMARY OSTEOARTHRITIS OF THE SHOULDER REGION LEFT COMPARISON: None Available. TECHNIQUE: Extremity CT of the left shoulder is performed with thin-section axial imaging. MPRs are created and reviewed as well. FINDINGS: There is mild to moderate left glenohumeral joint osteoarthrosis with joint space narrowing, subchondral sclerosis with small marginal osteophyte formation along the anterior inferior joint. Mild degenerative subcortical cystic changes of the lateral humeral head. Mild left acromioclavicular joint osteoarthrosis is present. No acute fracture or dislocation. No significant elbow joint effusion. No calcified intra-articular bodies. Mild supraspinatus muscle atrophy. IMPRESSION: 1. Mild to moderate left glenohumeral joint osteoarthrosis. 2. Mild left glenohumeral joint osteoarthrosis. This exam was performed according to our departmental dose-optimization program, which includes automated exposure control, adjustment of the mA and/or kV according to patient size and/or use of iterative reconstruction technique. Electronically signed by: Jules Deng DO 05/30/2019 1:28 PM CDT
== END ==
LOC: LAB.O 14:23
PROVIDERS: ATTEND Orthopaedic Surgery
DX: Z01.818 Encounter for other preprocedural examination (principal); M19.012 Primary osteoarthritis, left shoulder

== ENCOUNTER → 2019-06-11 | Outpatient (CLI) | payer OTHER | LOC: LAB.O 08:33 | PROVIDERS: ATTEND Orthopaedic Surgery | DX: Z01.818 Encounter for other preprocedural examination (principal) ==

== ENCOUNTER → 2019-06-26 | Outpatient (CLI) | payer OTHER | LOC: LAB.O 08:08 | PROVIDERS: ATTEND Family Medicine | DX: Z00.00 Encounter for general adult medical examination without abnormal findings (principal) ==

== ENCOUNTER → 2019-07-09 | Day surgery (SDC) | payer OTHER ==
--- NOTE | 2019-06-28 09:56 | HP ---
CHIEF COMPLAINT: Left shoulder pain. HISTORY OF PRESENT ILLNESS: Elena is a 63-year-old female with a history of pain in the left shoulder secondary to rotator cuff pathology and rheumatoid arthritis. She has had right shoulder replacement. Today, she complains of pain that isolated to the shoulder without radiation or neurologic symptoms. She has had symptoms now that are affecting her daily living. The pain she has is up to a 10 at times and has been refractory to conservative care including injections, oral medications and therapy. Because of her ongoing symptoms, limitations in activities and failure of conservative measures, she has requested operative intervention. After discussing the risks, benefits and alternatives to that, she has given informed consent. PAST SURGICAL HISTORY: 1. Cholecystectomy. 2. Right shoulder replacement. 3. Vein stripping. MEDICATIONS: 1. Medroxyprogesterone. 2. Duloxetine. 3. Omeprazole. 4. Estropipate. 5. Gabapentin. 6. Oxybutynin. 7. Aripiprazole. 8. Metoprolol. 9. Escitalopram. 10. Cyclobenzaprine. 11. Simvastatin. 12. Methotrexate. 13. Sulfasalazine. 14. Prednisone. 15. Folate. 16. Hydrocodone. 17. Zolpidem. 18. Alendronate. 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 ALLERGIES: NO KNOWN DRUG ALLERGIES. CODE STATUS: DNR. IMMUNIZATIONS: Up to date. SOCIAL HISTORY: She does smoke about one pack a day, does drink on occasion, but uses no illicit drugs. FAMILY HISTORY: None pertinent to today's complaint. REVIEW OF SYSTEMS: Negative except as indicated in the History of Present Illness. PHYSICAL EXAMINATION: VITAL SIGNS: Blood pressure 165/82. Pulse 64. Height 5'. Weight 181 pounds. MENTAL STATUS: The patient is awake, alert, and is able to give a good history and participate in the physical. The patient is oriented to person, place and time. SKIN: Normal tone and turgor. HEENT: Normocephalic, atraumatic. Pupils equal, round and reactive. Mucosal membranes are moist and appear healthy. NECK: Normal range of motion. No thyromegaly, no lymphadenopathy. CHEST: Normal respiratory excursion. CARDIAC: Regular rate and rhythm. No murmurs, rubs or gallops. MUSCULOSKELETAL: The bilateral lower extremities show full range of motion without pain. She has intact sensation in the extremities and they are warm and well perfused. She has no varus/valgus or anterior/posterior laxity. She has no deformities and no malalignment. The right upper extremity shows a well- healed wound on the anterior aspect of the shoulder. She has abduction to about 160 degrees of the shoulder and forward flexion to about about 160 degrees. She has intact sensation. It is warm and well perfused. She has no instability. She has full range of motion of the elbow, wrist and digits. She has no cyanosis, clubbing or other pathology. Her left upper extremity shows severe pain with range of motion. She has about 150 degrees today. She has decreased strength relative to the contralateral side. She has intact sensation. It is warm and well perfused. Strength is 5/5. There is no deformity or crepitus. IMAGING: MRI shows rotator cuff pathology and arthritis. ASSESSMENT: 1. Rotator cuff syndrome. 2. Rheumatoid arthritis. PLAN: The plan at this point is for reverse shoulder arthroplasty. We have discussed the risks, benefits, and alternatives to that and the patient has given informed consent. #[id number] [facility]
[~2019-07-09] MED LIST changes: +BUPIVACAINE 0.5% 30 ML VIAL INJ ONE; +BUPIVACAINE LIPOSOME 13.3 MG/ML VIAL INJ ONE; +CLINDAMYCIN IV 900MG 0 ML IVPB ONE; +SODIUM CHLORIDE 0.9% 100ML 0 ML IVPB ONE; +TRANEXAMIC ACID 1,000 MG/10 ML VIAL ONE
== END ==
LOC: AMB 05:23
PROVIDERS: ATTEND Orthopaedic Surgery
DX: M75.102 Unspecified rotator cuff tear or rupture of left shoulder, not specified as traumatic (principal); M06.9 Rheumatoid arthritis, unspecified; Z96.611 Presence of right artificial shoulder joint; Z90.49 Acquired absence of other specified parts of digestive tract; Z79.899 Other long term (current) drug therapy; Z66 Do not resuscitate; Z53.9 Procedure and treatment not carried out, unspecified reason
CPT/HCPCS: 80307; J0690; J3370; J7050; J7120

== ENCOUNTER → 2019-10-09 | Outpatient (CLI) | payer OTHER | LOC: LAB.O 12:19 | PROVIDERS: ATTEND Internal Medicine Rheumatology | DX: Z79.899 Other long term (current) drug therapy (principal) ==

== ENCOUNTER → 2019-11-25 | Outpatient (CLI) | payer OTHER ==
--- NOTE | 2019-11-26 16:15 | MAM ---
EXAM DESCRIPTION: 3D Screening BILATERAL : Digital Mammography. CLINICAL HISTORY: 63 years Female ANNUAL SCREENING . No complaints. No personal or family history of breast cancer. Menarche age 8. No childbirth. Menopause age 54. HRT less than 5 years ago.. Lifetime risk of developing breast cancer (Tyrer-Cuzick model)(%): 7.9. COMPARISON: I lateral screening digital breast tomosynthesis October 2018 and May 2017. TECHNIQUE: Bilateral CC and MLO projection full-field images, digital tomosynthesis mammographic technique. Bilateral digital 2-D full-field MLO images. CAD available for 2-D images. FINDINGS: The breast parenchymal density pattern is: Scattered areas of fibroglandular density. No skin thickening or nipple retraction. Bilateral parenchymal and skin calcifications. Vascular calcifications. No new focal, stellate mass or density, focal asymmetry , and no suspicious microcalcifications bilaterally. Stable mammograms compared to prior study. IMPRESSION: Benign exam. BIRAD CATEGORY: 2 BENIGN FINDINGS. RECOMMENDATIONS: FOLLOW UP: Routine digital bilateral mammographic screening, one year interval from October 2019. Written communication explaining the IMPRESSION and follow-up, will be mailed to the patient and referring health care provider. According to the [employer], yearly mammograms are recommended starting at age 40 and continuing as long as a woman is in good health. Any breast change noted on a breast self-exam should be reported promptly to the patient's healthcare provider. Breast MRI is recommended for women with an approximately 20-25% or greater lifetime risk of breast cancer, including women with a strong family history of breast or ovarian cancer and women who have been treated for Hodgkin's disease. A negative mammographic report should not delay tissue diagnosis in patients with significant clinical history or physical findings. Extremely dense breast tissue limits the sensitivity of digital mammography. Electronically signed by: Vivek Todd MD 11/26/2019 4:14 PM [employer]
== END ==
LOC: MAMMO 11:00
PROVIDERS: ATTEND Family Medicine
DX: Z12.31 Encounter for screening mammogram for malignant neoplasm of breast (principal)

== ENCOUNTER → 2020-01-24 | Outpatient (CLI) | payer OTHER | LOC: YCFC.O 09:15 | PROVIDERS: ATTEND Family Medicine | DX: I10 Essential (primary) hypertension (principal); Z87.448 Personal history of other diseases of urinary system; Z86.39 Personal history of other endocrine, nutritional and metabolic disease; E78.5 Hyperlipidemia, unspecified ==

== ENCOUNTER → 2020-04-22 | Outpatient (CLI) | payer OTHER ==
--- NOTE | 2020-04-23 09:13 | CT ---
Procedure: CT LUNG SCREENING Exam Date: April 22, 2020. Ordering Provider: Tony Fernandez Clinical Indication: PERSONAL HISTORY OF NICOTINE DEPENDENCE current cigarette smoker. 40 packs per day. This patient meets eligibility criteria for low-dose CT lung cancer screening. Comparison: Low-dose lung cancer screening examination March 2019. Technique: Using a multislice scanner, sequential helical axial imaging was obtained in the thorax, 2.5 mm thickness, 2.5 mm separation, from the level of the thoracic inlet through the lung bases without IV contrast. A low dose protocol was utilized for BMI greater than 30: BMI: 35.1. CTDI: 2.92 mGy. 120. kVp. 75 mA. DLP 108 mGy-cm. 2D sagittal and coronal reconstructed images, 6.0 mm thickness, were obtained. This exam was performed according to our departmental dose optimization program which includes use of automated exposure control, adjustment of the mA and/or kV according to patient size and/or use of iterative reconstruction technique. Nodule measurements under 10 mm are given as mean value of 3 axes diameters. FINDINGS: Lungs and large airways: Minimal density in the bilateral bilateral bases is stable. Stable pleural parenchymal scarring inferior lingula bilateral perihilar peribronchial wall cuffing is mild and stable. Small scattered blebs in a centrilobular pattern predominantly in the upper lung albarran stable. No abnormal nodules and no masses. No new infiltrates. Pleura and space: Unremarkable except for sporadic scarring. Mediastinum and santo: evaluation limited by low dose technique and lack of IV contrast. Small lymph nodes with no dominant focal masses. Heart and great vessels: Atherosclerotic calcifications in the coronary vessels, aortic arch, descending thoracic aorta, and brachiocephalic vessels. Chest wall, lower neck, axillae: Evaluation also limited by same factors as described above. Also large body habitus. Right total shoulder arthroplasty again noted. Stable small axillary lymph nodes. Upper abdomen: Evaluation limited by low-dose technique. No free air or free fluid. Calcification in the spleen. Fatty liver. Surgical clips gallbladder fossa with no fluid. Atherosclerotic calcifications of aorta and branch vessels. Osseous structures: Evaluation limited by low dose MIP technique. There is progressive healing of posterior left rib fractures 9 and 10. Mild thoracic dextroscoliosis with spondylosis. Left shoulder and sternoclavicular arthrosis. IMPRESSION: Stable appearance of lungs with minimal emphysematous changes predominantly in the upper lung albarran since the prior study. New nodule and no abnormal mass. No acute infiltrate.. [facility] Best Practice Recommendations: please see below for Lung RADS category and FOLLOW-UP.* *Lung RADS category Category 1 - No nodule or definitely benign nodules (probability of malignancy less than 1%). Follow-up: Continue annual screening with Low Dose Chest CT in 12 months. Electronically signed by: Vivek Todd MD 04/23/2020 9:12 AM CDT
== END ==
LOC: CT 10:00
PROVIDERS: ATTEND Family Medicine
DX: Z87.891 Personal history of nicotine dependence (principal)

== ENCOUNTER → 2020-05-22 | Outpatient (CLI) | payer MEDICARE, OTHER | LOC: LAB.O 11:00 | PROVIDERS: ATTEND Internal Medicine Rheumatology | DX: Z79.899 Other long term (current) drug therapy (principal) ==

== ENCOUNTER → 2020-09-01 | Outpatient (CLI) | payer OTHER | LOC: YCFC.O 11:38 | PROVIDERS: ATTEND Family Medicine | DX: Z03.818 Encounter for observation for suspected exposure to other biological agents ruled out (principal) ==

== ENCOUNTER → 2020-11-04 | Outpatient (CLI) | payer OTHER | LOC: LAB.O 10:21 | PROVIDERS: ATTEND Internal Medicine Rheumatology | DX: M05.79 Rheumatoid arthritis with rheumatoid factor of multiple sites without organ or systems involvement (principal); Z79.899 Other long term (current) drug therapy ==